=== PATIENT | female | born 1960 | race Caucasian/White ===

== ENCOUNTER 2018-07-02 15:22 | Emergency (ER) | payer MEDICAID ==
[~2018-07-02] VITALS: Ht 162.6 cm; Wt 79.4 kg
[2018-07-02] MEDS: KETOROLAC TROMETH 60MG/2ML VIAL IM ONE ×2 (19:55→20:59)
[2018-07-02] MEDS ORDERED: ACETAMINOPHEN 500 MG TAB PO ONE (21:15)
[2018-07-02] MEDS ORDERED: IBUPROFEN 800 MG TAB PO ONE (21:15)
[2018-07-03 00:04] VITALS: BP 149/86
== END 2018-07-03 00:35 | disposition home or self-care (01) ==
LOC: EDBD 15:22 → ER 15:22
DX: M51.36 Other intervertebral disc degeneration, lumbar region (principal); M41.9 Scoliosis, unspecified; M48.061 Spinal stenosis, lumbar region without neurogenic claudication; M19.90 Unspecified osteoarthritis, unspecified site; I10 Essential (primary) hypertension
CPT/HCPCS: 72131; 72192; J1885